=== PATIENT | female | born 1950 | race Hispanic/Latino ===

== ENCOUNTER 2017-05-23 07:44 | Outpatient (CLI) | payer MEDICARE, OTHER ==
--- NOTE | 2017-05-23 20:35 | XRay Report ---
FINAL REPORT PROCEDURE: XR HIP 2-3V RT TECHNIQUE: RIGHT hip radiographs, 2 views each, including AP view of the pelvis. HISTORY: RIGHT HIP PAIN COMPARISON: No prior studies are available for comparison. FINDINGS: Bilateral hip joint space narrowing. No acute fracture or dislocation is seen. IMPRESSION: Mild bilateral hip joint osteoarthritis. No acute abnormality is seen
== END 2017-05-23 07:45 | disposition home or self-care (01) ==
LOC: SPVIMAG 07:44
PROVIDERS: ATTEND Orthopaedic Surgery Sports Medicine
DX: M16.0 Bilateral primary osteoarthritis of hip (principal)